=== PATIENT | female | born 1960 | race American Indian/Alaskan Native ===

== ENCOUNTER 2018-11-26 01:14 | Emergency (ER) | payer OTHER ==
--- NOTE | 2018-11-26 04:10 | Emergency Department Report ---
ED General Adult HPI - General Chief complaint: Urogenital-Female Stated complaint: BACK AND NECK PAIN Time Seen by Provider: 11/26/18 02:47 Source: patient Mode of arrival: Ambulatory Limitations: No Limitations - History of Present Illness Initial comments: Patient is a 58 year-old female who presents emergency room with complaints of right lower back pain that began yesterday. She has associated urinary frequency. She does not report any fall, injury, trauma, numbness, weakness or bowel/bladder incontinence. She states she also has chronic right-sided neck discomfort since May 2017. She states she has taken Motrin and Tylenol with some relief. the patient denies any new injury or fall. She states she has a history of HTN but does not take her medication. - Related Data Previous Rx's Medication Instructions Recorded Last Taken Type Naproxen [Naprosyn] 500 mg PO BID PRN #20 tablet 11/26/18 Unknown Rx Nitrofurantoin [place]/M-Cryst 100 mg PO BID 5 Days #10 capsule 11/26/18 Unknown Rx [Macrobid CAP] Allergies Allergy/AdvReac Type Severity Reaction Status Date / Time No Known Allergies Allergy Unverified 11/26/18 01:53 ED Review of Systems ROS: Stated complaint: BACK AND NECK PAIN Other details as noted in HPI Comment: All other systems reviewed and negative ED Past Medical Hx - Past Medical History Previous Medical History?: Yes Hx Hypertension: Yes - Surgical History Past Surgical History?: Yes Hx Appendectomy: Yes Additional Surgical History: Csection - Social History Smoking Status: Current Some Day Smoker - Medications Home Medications: Home Medications Medication Instructions Recorded Confirmed Last Taken Type Naproxen [Naprosyn] 500 mg PO BID PRN #20 tablet 11/26/18 Unknown Rx Nitrofurantoin Rout[place]/M-Cryst 100 mg PO BID 5 Days #10 capsule 11/26/18 Unknown Rx [Macrobid CAP] ED Physical Exam - General Limitations: No Limitations General appearance: alert, in no apparent distress - Head Head exam: Present: atraumatic, normocephalic - Eye Eye exam: Present: normal appearance, PERRL - ENT ENT exam: Present: mucous membranes moist - Neck Neck exam: Present: normal inspection, tenderness (right trapezius TTP, no midline C-spine tenderness, no step offs, no deformities ), full ROM - Respiratory Respiratory exam: Present: normal lung sounds bilaterally. Absent: respiratory distress, wheezes, rales, rhonchi, stridor, chest wall tenderness, accessory muscle use, decreased breath sounds, prolonged expiratory - Cardiovascular Cardiovascular Exam: Present: regular rate, normal rhythm, normal heart sounds. Absent: systolic murmur, diastolic murmur, rubs, gallop - Back Exam Back exam: Present: normal inspection, full ROM. Absent: CVA tenderness (R), CVA tenderness (L), paraspinal tenderness, vertebral tenderness - Neurological Exam Neurological exam: Present: alert, oriented X3 - Psychiatric Psychiatric exam: Present: normal affect, normal mood - Skin Skin exam: Present: warm, dry, intact ED Course Vital Signs 11/26/18 11/26/18 02:00 05:00 Temperature 98.3 F Pulse Rate 87 84 Respiratory 20 18 Rate Blood Pressure 185/81 Blood Pressure 187/88 [Right] O2 Sat by Pulse 98 98 Oximetry ED Medical Decision Making - Lab Data Lab Results 11/26/18 Range/Units 04:00 Urine Color Straw (Yellow) Urine Turbidity Slightly-cloudy (Clear) Urine pH 7.0 (5.0-7.0) Ur Specific [place] 1.003 (1.003-1.030) Urine Protein <15 mg/dl (Negative) mg/dL Urine Glucose (UA) Neg (Negative) mg/dL Urine Ketones Neg (Negative) mg/dL Urine Blood Sm (Negative) Urine Nitrite Neg (Negative) Urine Bilirubin Neg (Negative) Urine Urobilinogen < 2.0 (<2.0) mg/dL Ur Leukocyte Esterase Lg (Negative) Urine WBC (Auto) 6.0 (0.0-6.0) /HPF Urine RBC (Auto) 38.0 (0.0-6.0) /HPF U Epithel Cells (Auto) 3.0 (0-13.0) /HPF Urine Bacteria (Auto) 1+ (Negative) /HPF Vital Signs 11/26/18 11/26/18 02:00 05:00 Temperature 98.3 F Pulse Rate 87 84 Respiratory 20 18 Rate Blood Pressure 185/81 Blood Pressure 187/88 [Right] O2 Sat by Pulse 98 98 Oximetry - EKG Data EKG shows normal: sinus rhythm, axis, intervals, QRS complexes, ST-T waves Rate: normal - Medical Decision Making Patient is a 58 year-old female who presents emergency room with complaints of right lower back pain that began yesterday. She has associated urinary frequency. She does not report any fall, injury, trauma, numbness, weakness or bowel/bladder incontinence. She states she also has chronic right-sided neck discomfort since May 2017. She states she has taken Motrin and Tylenol with some relief. the patient denies any new injury or fall. She states she has a history of HTN but does not take her medication. pt UA has large amount of leukocyte esterase, given urinary frequency will tx pt for a UTI, urine culture sent. pt given macrobid for UTI and naproxen for her chronic neck pain. advised to please use medication as prescribed. May use ice, heat, rest, epsom salt bath. Follow-up with your primary care doctor next 2-3 days. Return to the emergency room for any new or worsening symptoms. please discuss your blood pressure with your primary care doctor. Critical care attestation.: If time is entered above; I have spent that time in minutes in the direct care of this critically ill patient, excluding procedure time. ED Disposition Clinical Impression: Chronic neck pain, Elevated blood pressure reading UTI (urinary tract infection) Qualifiers: Urinary tract infection type: acute cystitis Hematuria presence: with hematuria Qualified Code(s): N30.01 - Acute cystitis with hematuria Disposition: TO HOME OR SELFCARE Is pt being admited?: No Does the pt Need Aspirin: No Condition: Stable Instructions: Urinary Tract Infection in Women (ED) Additional Instructions: Please use medication as prescribed. May use ice, heat, rest, epsom salt bath. Follow-up with your primary care doctor next 2-3 days. Return to the emergency room for any new or worsening symptoms. please discuss your blood pressure with your primary care doctor. Prescriptions: Nitrofurantoin Routt/M-Cryst [Macrobid CAP] 100 mg PO BID 5 Days #10 capsule Naproxen [Naprosyn] 500 mg PO BID PRN #20 tablet PRN Reason: Pain, Moderate (4-6) Referrals: JACKSON ALDRIDGE MD [Primary Care Provider] - 3-5 Days Time of Disposition: 04:42 Print Language: ICELANDIC
[2018-11-26 04:33] LABS: Bacteria,Urine 1+ /HPF (Negative); Bilirubin,Urine NEG (Negative); Blood,Urine SM (Negative); Color,Urine Straw (Yellow); Protein,Urine <15 mg/dL mg/dL (Negative); Urobilinogen,Urine < 2.0 mg/dL (<2.0)
[2018-11-26 05:43] VITALS: BP 187/88
== END 2018-11-26 05:00 | disposition home or self-care (01) ==
LOC: ED 01:14
DX: N39.0 Urinary tract infection, site not specified (principal); G89.29 Other chronic pain; I10 Essential (primary) hypertension; F17.200 Nicotine dependence, unspecified, uncomplicated; Z90.89 Acquired absence of other organs
CPT/HCPCS: 81001; 87086

== ENCOUNTER 2020-09-08 16:13 | Emergency (ER) | payer SELFPAY ==
[2020-09-08 17:33] VITALS: BP 137/95
--- NOTE | 2020-09-08 19:38 | Emergency Department Report ---
ED General Adult HPI - General Chief complaint: Back Pain/Injury Stated complaint: BACK PAIN, RIGHT LEG PAIN Time Seen by Provider: 09/08/20 19:30 Source: patient Mode of arrival: Ambulatory Limitations: No Limitations - History of Present Illness Initial comments: Patient is a 59-year-old female presents emergency room with complaints of right lower back pain that radiates down her right leg that began 2 weeks ago. She denies any fall or injury. She states that she has a history of herniated disc in 2018 and intermittently experiences this pain. She states that ibuprofen does help her symptoms. States that she is also noticed some urinary frequency. She denies any fever, nausea, vomiting, diarrhea, dysuria, numbness, weakness, bowel or bladder incontinence. She has a past medical history of hypertension. No allergies to medications. Patient reports that she also has been having intermittent hives since May, she denies any new soaps, lotions, detergents. She states that she was started on levothyroxine but had a reaction to it and she stopped that medication a couple months ago but has still been experiencing intermittent hives. She states that she gets itching all over. She denies any facial swelling, difficulty swallowing, sensation of throat closing, difficulty breathing. Severity scale (0 -10): 8 - Related Data Previous Rx's Medication Instructions Recorded Last Taken Type Naproxen [Naprosyn] 500 mg PO BID PRN #20 tablet 11/26/18 Unknown Rx Nitrofurantoin [place]/M-Cryst 100 mg PO BID 5 Days #10 capsule 11/26/18 Unknown Rx [Macrobid CAP] Cetirizine HCl [Zyrtec 10mg tab] 10 mg PO DAILY #14 tablet 09/08/20 Unknown Rx Naproxen [EC-Naprosyn] 500 mg PO BID PRN #14 tablet.dr 09/08/20 Unknown Rx Prednisone [predniSONE 10 mg 10 mg PO .TAPER #1 tab.ds.pk 09/08/20 Unknown Rx (6-Day Pack, 21 Tabs)] cephALEXin [Keflex] 500 mg PO BID 7 Days #14 cap 09/08/20 Unknown Rx diphenhydrAMINE [Benadryl CAP] 25 mg PO Q6HR PRN #20 capsule 09/08/20 Unknown Rx methOCARBAMOL [Robaxin TAB] 500 mg PO BID PRN #14 tab 09/08/20 Unknown Rx Allergies Allergy/AdvReac Type Severity Reaction Status Date / Time No Known Allergies Allergy Unverified 11/26/18 01:53 ED Review of Systems ROS: Stated complaint: BACK PAIN, RIGHT LEG PAIN Other details as noted in HPI Comment: All other systems reviewed and negative ED Past Medical Hx - Past Medical History Hx Hypertension: Yes - Surgical History Hx Appendectomy: Yes Additional Surgical History: Csection - Social History Smoking Status: Current Some Day Smoker - Medications Home Medications: Home Medications Medication Instructions Recorded Confirmed Last Taken Type Naproxen [Naprosyn] 500 mg PO BID PRN #20 tablet 11/26/18 Unknown Rx Nitrofurantoin [place]/M-Cryst 100 mg PO BID 5 Days #10 capsule 11/26/18 Unknown Rx [Macrobid CAP] Cetirizine HCl [Zyrtec 10mg tab] 10 mg PO DAILY #14 tablet 09/08/20 Unknown Rx Naproxen [EC-Naprosyn] 500 mg PO BID PRN #14 tablet.dr 09/08/20 Unknown Rx Prednisone [predniSONE 10 mg 10 mg PO .TAPER #1 tab.ds.pk 09/08/20 Unknown Rx (6-Day Pack, 21 Tabs)] cephALEXin [Keflex] 500 mg PO BID 7 Days #14 cap 09/08/20 Unknown Rx diphenhydrAMINE [Benadryl CAP] 25 mg PO Q6HR PRN #20 capsule 09/08/20 Unknown Rx methOCARBAMOL [Robaxin TAB] 500 mg PO BID PRN #14 tab 09/08/20 Unknown Rx ED Physical Exam - General Limitations: No Limitations General appearance: alert, in no apparent distress - Head Head exam: Present: atraumatic, normocephalic - Eye Eye exam: Present: normal appearance - ENT ENT exam: Present: mucous membranes moist, other (no angioedema) - Neck Neck exam: Present: normal inspection, full ROM. Absent: tenderness - Respiratory Respiratory exam: Present: normal lung sounds bilaterally. Absent: respiratory distress, wheezes, rales, rhonchi, stridor, chest wall tenderness, accessory muscle use, decreased breath sounds, prolonged expiratory - Cardiovascular Cardiovascular Exam: Present: regular rate, normal rhythm, normal heart sounds. Absent: systolic murmur, diastolic murmur, rubs, gallop - Back Exam Back exam: Present: normal inspection, full ROM, paraspinal tenderness (Right- sided lumbar paraspinal muscular tenderness palpation, no midline C-spine, T- spine, L-spine tenderness palpation, no step-offs, no deformities). Absent: vertebral tenderness - Neurological Exam Neurological exam: Present: alert, oriented X3, CN II-XII intact, normal gait. Absent: motor sensory deficit - Psychiatric Psychiatric exam: Present: normal affect, normal mood - Skin Skin exam: Present: warm, dry, urticaria (urticaria present to the back) ED Course Vital Signs 09/08/20 17:32 Temperature 98.6 F Pulse Rate 90 Respiratory 17 Rate Blood Pressure 137/95 [Right] O2 Sat by Pulse 99 Oximetry ED Medical Decision Making - Lab Data Vital Signs 09/08/20 17:32 Temperature 98.6 F Pulse Rate 90 Respiratory 17 Rate Blood Pressure 137/95 [Right] O2 Sat by Pulse 99 Oximetry Lab Results 09/08/20 Range/Units 20:13 Urine Color Yellow (Yellow) Urine Turbidity Slightly-cloudy (Clear) Urine pH 5.0 (5.0-7.0) Ur Specific [place] 1.021 (1.003-1.030) Urine Protein <15 mg/dl (Negative) mg/dL Urine Glucose (UA) Neg (Negative) mg/dL Urine Ketones Neg (Negative) mg/dL Urine Blood Neg (Negative) Urine Nitrite Neg (Negative) Urine Bilirubin Neg (Negative) Urine Urobilinogen < 2.0 (<2.0) mg/dL Ur Leukocyte Esterase Tr (Negative) Urine WBC (Auto) 14.0 H (0.0-6.0) /HPF Urine RBC (Auto) 5.0 (0.0-6.0) /HPF U Epithel Cells (Auto) 4.0 (0-13.0) /HPF Urine Mucus 1+ /HPF - Medical Decision Making Patient is a 59-year-old female presents emergency room with complaints of right lower back pain that radiates down her right leg that began 2 weeks ago. She denies any fall or injury. She states that she has a history of herniated disc in 2018 and intermittently experiences this pain. She states that ibuprofen does help her symptoms. States that she is also noticed some urinary frequency. She denies any fever, nausea, vomiting, diarrhea, dysuria, numbness, weakness, bowel or bladder incontinence. She has a past medical history of hypertension. No allergies to medications. Patient reports that she also has been having intermittent hives since May, she denies any new soaps, lotions, detergents. She states that she was started on levothyroxine but had a reaction to it and she stopped that medication a couple months ago but has still been experiencing intermittent hives. She states that she gets itching all over. She denies any facial swelling, difficulty swallowing, sensation of throat closing, difficulty breathing. Vitals are stable. On exam:Right-sided lumbar paraspinal muscular tenderness palpation, no midline C-spine, T-spine, L-spine tenderness palpation, no step-offs, no deformities, urticaria present to the back, no signs of angioedema. Symptoms most likely consistent with sciatica versus lumbar radiculopathy. UA shows evidence of UTI. She also has nonspecific urticaria but no signs of angioedema or anaphylaxis. Discussed all results with patient answered questions. discussed the importance of primary care follow-up. Advised patient Please use medication as prescribed. Increase your water intake. Follow-up with your primary care doctor. Return to emergency room for any new or worsening symptoms. Critical care attestation.: If time is entered above; I have spent that time in minutes in the direct care of this critically ill patient, excluding procedure time. ED Disposition Clinical Impression: Urticaria Low back pain Qualifiers: Chronicity: acute Back pain laterality: right Sciatica presence: with sciatica Sciatica laterality: sciatica of right side Qualified Code(s): M54.41 - Lumbago with sciatica, right side UTI (urinary tract infection) Qualifiers: Urinary tract infection type: acute cystitis Hematuria presence: without hematuria Qualified Code(s): N30.00 - Acute cystitis without hematuria Disposition: TO HOME OR SELFCARE Is pt being admited?: No Does the pt Need Aspirin: No Condition: Stable Instructions: Hives, Urinary Tract Infection, Adult, [id number], Sciatica Additional Instructions: Please use medication as prescribed. Increase your water intake. Follow-up with your primary care doctor. Return to emergency room for any new or worsening symptoms. Prescriptions: diphenhydrAMINE [Benadryl CAP] 25 mg PO Q6HR PRN #20 capsule PRN Reason: itching/rash Naproxen [EC-Naprosyn] 500 mg PO BID PRN #14 tablet. PRN Reason: pain cephALEXin [Keflex] 500 mg PO BID 7 Days #14 cap Prednisone [predniSONE 10 mg (6-Day Pack, 21 Tabs)] 10 mg PO .TAPER #1 tab.ds.pk methOCARBAMOL [Robaxin TAB] 500 mg PO BID PRN #14 tab PRN Reason: pain Cetirizine HCl [Zyrtec 10mg tab] 10 mg PO DAILY #14 tablet Referrals: RENE LEDBETTER MD [Staff Physician] - 3-5 Days [facility] [Provider Group] - 3-5 Days [facility], [LAB/CONTRACT] - 3-5 Days Time of Disposition: 21:06 Print Language: TURKMEN
[2020-09-08 20:45] LABS: Bilirubin,Urine NEG (Negative); Blood,Urine NEG (Negative); Color,Urine Yellow (Yellow); Mucus,Urine 1+ /HPF; Protein,Urine <15 mg/dL mg/dL (Negative); Urobilinogen,Urine < 2.0 mg/dL (<2.0)
== END 2020-09-08 22:00 | disposition home or self-care (01) ==
LOC: ED 16:13
DX: L50.9 Urticaria, unspecified (principal); N39.0 Urinary tract infection, site not specified; I10 Essential (primary) hypertension; F17.200 Nicotine dependence, unspecified, uncomplicated; Z79.899 Other long term (current) drug therapy
CPT/HCPCS: 81001; 87086; 99282